=== PATIENT | female | born 1965 | race Caucasian/White ===

== ENCOUNTER 2016-07-28 07:24 | Day surgery (SDC) | payer OTHER ==
[2016-07-28] VITALS (12 sets, daily range): BP systolic 109–148; BP diastolic 49–93; PULSE 73–91; RESP 12–22; O2SAT 92–100
[~2016-07-28] VITALS: Ht 157.5 cm; Wt 113.4 kg
[~2016-07-28 07:24] MED LIST: ALPR0.5T8 PO; ARIP2TAB10 PO; BUPR200T34 PO; CeFAZolin 2 Gm/50 mL D5W IV Premix IV ONE; Dexamethasone 4 mg/mL Inj IVPUSH PRN; EPHEDrine Sulfate 50 mg/mL Inj IVPUSH PRN; HYDR-4003 PO; HYDROmorphone 1 mg/mL Inj IVPUSH PRN; HYG25 PO; IMI100 PO; LAMO100T2 PO; LEVO150T5 PO; LISI-567 PO; Labetalol 5 mg/mL 4 mL Inj IV PRN; Lactated Ringer's 1,000 ML IV SCH; Lactated Ringer's 500 ML IV PRN; Ondansetron 2 mg/mL 2 mL Inj IVPUSH PRN; Phenylephrine 10,000 mCg/mL Inj IVPUSH PRN; ROSU40TA20 PO; TOPI50TA88 PO; fentaNYL-PF 50 mCg/mL 2 mL Inj IVPUSH PRN; hydrALAZINE 20 mg/mL Inj IVPUSH PRN
[2016-07-28] MEDS ORDERED: Lidocaine PF 1% 30 mL Inj ONE (07:25)
[2016-07-28] MEDS ORDERED: Ketamine 10 mg/mL 20 mL Inj ONE (07:25)
[2016-07-28] MEDS ORDERED: Propofol 10,000 mCg/mL 20 mL Inj ONE (07:25)
[2016-07-28] MEDS ORDERED: fentaNYL-PF 50 mCg/mL 2 mL Inj ONE (07:25)
[2016-07-28] MEDS ORDERED: Dexamethasone 4 mg/mL Inj ONE (07:25)
[2016-07-28] MEDS ORDERED: Succinylcholine Chloride 20 mg/mL 5 mL Inj ONE (07:25)
[2016-07-28] MEDS ORDERED: Ondansetron 2 mg/mL 2 mL Inj ONE (07:25)
[2016-07-28] MEDS ORDERED: Lactated Ringer's 1,000 ML IV ONE (08:06)
[2016-07-28] MEDS ORDERED: Bupivacaine-MPF 0.5% W/EPI 30 mL Inj INFILTRATE ONE (09:15)
--- NOTE | 2016-07-28 09:15 | PCM.HPANE ---
Patient Data Date of Service: Jul 28, 2016 Surgeon Admitting Provider: Attending Provider:Zoltan Nolan MD Primary Care Physician:Odalys Recio PA-C Other Provider:Nieves Diaz Anesthesia Reason for Visit Hyperparathyroidism Ht/WT & BMI Height (Feet): 5 Height (Inches): 2.00 Weight (Kilograms): 113.390 Body Mass Index 46.00 Allergies Coded Allergies: metoclopramide (Verified Allergy, Severe, 12/09/08) Uncoded Allergies: Metoclopramide (Allergy, Severe, 12/11/03) Past Anesthesia History Anesthesia History: Denies:: Anesthesia Reactions, Fam Anesthesia Reaction Diabetes History Hx Diabetes?: No MRSA MRSA: No Medications Hypertension Medication: No Home Meds Incl Beta Kerry: No Reported Medications Rosuvastatin Calcium 40 Mg Kkfpoy81 Mg PO 07/27/16 Lisinopril 20 Mg Lgnzsu81 Mg PO DAILY 30 Days Ref 0 07/27/16 Levothyroxine 150 Mcg Vomxna063 Mcg PO DAILY Ref 0 07/27/16 Lamotrigine 100 Mg Tjdypj551 Mg PO DAILY Ref 0 07/27/16 Hydrocodone-Acetaminophen 5-325 mg 1 Each Tablet1 Tablet PO Q4H PRN For Pain Ref 0 07/27/16 Chlorthalidone 25 Mg Ywaawv23 Mg PO DAILY #30 TABLET 07/27/16 Bupropion HCl (Bupropion HCl ER)200 Mg Tablet.er300 Mg PO DAILY 07/27/16 Alprazolam 0.5 Mg Tablet0.5 Mg PO BID PRN For Anxiety Ref 0 07/27/16 Aripiprazole (Abilify)2 Mg Tablet2 Mg PO DAILY Ref 0 07/27/16 Discontinued Reported Medications Topiramate 50 Mg Epraiz28 Mg PO BID Ref 0 07/27/16 Sumatriptan (Imitrex)100 Mg Nhfhck385 Mg PO Q2H PRN migraines MR x1/ NTE 200mg/24hr 07/27/16 Sumatriptan (Imitrex)100 Mg Ndyxjd313 Mg PO PRN For Headache 04/13/15 Atorvastatin (Lipitor)10 Mg Tab10 Mg PO DAILY Ref 0 04/13/15 Atenolol 25 Mg Tyofok91 Mg PO DAILY #30 TABLET Ref 0 04/13/15 Duloxetine 60 Mg Capsule.dr60 Mg PO DAILY 04/23/14 Alprazolam 0.5 Mg Tablet0.5 Mg PO BID PRN For Anxiety 04/23/14 Levothyroxine 175 Mcg Jjiqpd224 Mcg PO DAILY 04/23/14 History History of ENT Problems?: No HEENT History: Denies:: Cataracts Glaucoma Hearing Problem Denture Type: None Teeth Condition: Within Normal Limits Hx of Heart Problems?: Yes Cardiovascular History: Positive for:: Hypertension Denies:: AICD Abdominal Aortic Aneurism Atrial Fibrillation Cardiac Surgery Chest Pain Congestive Heart Failure Heart Murmur Irregular Heartbeat Pacemaker Peripheral Vascular Hx of Respiratory Problem?: No Respiratory History: Denies:: Asthma COPD Emphysema Oxygen Administration Pneumonia Tuberculosis Use of C-PAP Machine (does not use- sleep study upcoming) Use of Inhalers / NEBS Hx Neurologic Problems?: Yes Neurological History: Positive for:: Headaches (migraines- occur about once monthly) Denies:: Alzheimer's Disease CVA Dementia Dizziness Multiple Sclerosis Parkinson's Disease Seizures Hx of GI Problems?: Yes Gastrointestinal History: Positive for:: Hiatal Hernia Hx of Problems?: No Genitourinary History: Denies:: Kidney Stones Urinary Tract Infection Female Hx: Denies:: Endometriosis Pelvic Inflammatory Problems with Breasts? Skin History: Denies:: History Skin Disorders? Pressure Ulcers Hx Musculoskeletal Problems?: Yes Musculoskeletal History: Positive for:: Back Injury (ruptured disc, bulging disc) Musculoskeletal Trauma (hip fx, ankle fx) Denies:: Fibromyalgia (dx at one time, now thinks its parathyroid) Joint Replacement Myasthenia Gravis Osteoarthritis Rheumatoid Arthritis Hx of Psycho/Social Problems?: Yes Psycho Social History: Positive for:: Anxiety Hx Depression Denies:: Bipolar Disorder Suicide Attempt Hx Surgeries?: No (gallbladder, knee, hip) Hx Any Other Health Problems?: Yes Other History: Positive for:: Hospitalization Thyroid Disease (parathyroid current admission problem) Denies:: Cancer History Blood Transfusions: Positive for:: Accept Blood Products? Denies:: Blood Transfuse Reaction Blood Transfusions (not sure, poss around 1979) Hx Diabetes: No Hx Alcohol Use: YesAlcoholic Drinks Per Day: 2 drinks on weekendsHx Substance Use: Yes (marijuana inhaled, random use ) Smoking Status: Current Every Day Smoker Have You Smoked inLast 12 mo: No Stop/Bang S-Snoring: Do You Snore Loudly: Yes T-Tired: feel tired, fatigued: Yes O-Obsered: Observed not breath: Yes P-Blood Pressure: treated: Yes B- Body Mass Index > 35 kg/m2: Yes A- Age over 50: Yes N- Neck Large Circumference: Yes G- Gender Male: No SAMMI Total Score: 7 SAMMI Risk Assessment: High Risk, =/>3 Yes SAMMI Category 1: Yes Risk Assessment Category Category 1A: Patient has history of documented sleep apnea, and HAS NOT received any narcotic, sedative or anesthesia administration during this stay. Category 1B: Patient has history of documented sleep apnea, and HAS received any narcotic , sedative or anesthesia administration during this stay Category 2: Patient has SUSPECTED Obstructive Sleep Apnea, and HAS received any narcotic , sedative or anesthesia administration during this stay. Category 3: Patient has SUSPECTED Obstructive Sleep Apnea and HAS NOT received narcotic, sedative or anesthesia administration during this stay. Category 4: Outpatient in Procedural Areas with known sleep apnea or who screen positive for High Risk via the STOP/BANG questionnaire. Exam Exam Vital Signs Vital Signs Date Time Temp Pulse Resp B/P Pulse Ox O2 Delivery O2 Flow Rate FiO2 07/28/16 08:08 36.4 83 22 148/93 94 Room Air General Appearance: Alert, Oriented X3, Cooperative, No Acute Distress HEENT/AIRWAY: MP 4, Mouth Opening (small) Lungs: Clear to Auscultation, Normal Air Movement Heart: Exam Unremarkable, Regular Rate/Rhythm, No Murmurs/Rubs/Gallops Meds/Labs/Diagnostics Admission Meds Current Medications Lactated Ringer's (Lr) 1,000 ml @ ud STK-MED ONCE IV Last administered on 07/28t 08:06; Start 07/28/16 at 08:06; Stop 07/28/16 at 08:07; Status DC Plan Impression Patient chart reviewed, patient interviewed and anesthestic plan with risks, benefits, and alternatives discussed, and informed consent obtained. Fredy Vallejo MD Jul 28, 2016 09:15
--- NOTE | 2016-07-28 09:30 | DRSVH ---
PROCEDURE: NM PARATHYROID INJECTION ONLY INDICATIONS: HYPERPARATHYROID COMPARISON: [facility], [place], [place] PARATHYROID W SPECT IMAGE, 07/22/2016, 12:47. FINDINGS/IMPRESSION: 10.9 mCi of technetium 99m sestamibi was injected intravenously at 0830 hours i n preparation for surgery. No imaging was performed. Dictated by: Sha Uamna M.D. on 07/28/2016 at 9:26 Approved by: Sha Umana M.D. on 07/28/2016 at 9:28
--- NOTE | 2016-07-28 10:53 | OP ---
[address] [address] OPERATIVE REPORT PATIENT: CHING DAVIDSON : 1965 MR#: [id number] ADMIT: 07/28/2016 JOB ID: [id number] DATE OF SURGERY: 07/28/2016 ANESTHESIA: General. PREOPERATIVE DIAGNOSIS(ES): Primary hyperparathyroidism. POSTOPERATIVE DIAGNOSIS(ES): Primary hyperparathyroidism. OPERATIVE PROCEDURE: Minimally invasive parathyroidectomy using gamma probe for confirmation. SURGEON: Dr. Zoltan Nolan. PACKING MACHINE OPERATOR: Beltran Baez M.D. (pharmacy affairs assistant was required for the safe and timely completion of the case) and Rafa Morillo PA-C. COMPLICATIONS: None. ESTIMATED BLOOD LOSS: Less than 2 mL. CONDITION: Satisfactory. SPECIMEN: Right inferior parathyroid adenoma. FINDINGS: Preoperative imaging including CT and sestamibi scan suggested a right inferior adenoma. Intraoperative findings corresponding with this. Background gamma probe reading was 363. Ex vivo count was 323 confirming that the specimen was an adenoma. INDICATIONS/SIGNIFICANT HISTORY: The patient is a 50-year-old woman with a remote history of thyroid ablation who was noted to have elevated calcium levels. Subsequent PTH was elevated suggesting primary hyperparathyroid disease. She was referred to [facility] and elected to undergo parathyroid exploration. OPERATIVE TECHNIQUE: Prior to coming to the operating room, the patient received 10 mCi sestamibi injection. She was brought into the operating room and placed in the supine position. General anesthesia was administered. The neck was prepped and draped in a standard surgical fashion. A procedural pause performed. Local anesthetic was injected, followed by creation of a 2 cm transverse anterior cervical incision. Dissection was carried down through the skin and subcutaneous tissue. Inferior and superior subplatysmal flaps were then raised. The strap muscles on the right were then sequentially elevated. Immediately under the sternothyroid on the right, the adenoma was encountered as expected based on the imaging. This was circumferentially dissected free. There was a vascular pedicle which was clipped. A total of two clips were placed. The adenoma was then removed. Prior to removing the adenoma, background gamma probe reading was obtained and afterwards an ex vivo count was obtained. Findings were as documented above. Hemostasis was then achieved. The strap muscle was reapproximated with 3-0 Vicryl. Platysma was reapproximated in a similar fashion. Skin was closed using a 4-0 Monocryl. Dermabond was applied. The entire procedure was well tolerated without complication.
[2016-07-28] MEDS: oxyCODONE-Acetamin 5-325 mg Tablet PO PRN ×2 (11:30→12:42)
--- NOTE | 2016-07-28 11:45 | PCM.ANEP1 ---
Post Anesthesia PACU Phase 1 Assessment Vital Signs Vital Signs Date Time Temp Pulse Resp B/P Pulse Ox O2 Delivery O2 Flow Rate FiO2 07/28/16 11:17 73 12 128/63 98 Room Air 07/28/16 11:00 81 12 121/60 100 Room Air 07/28/16 10:55 84 14 109/73 96 Room Air 07/28/16 10:50 36.2 83 19 136/92 93 Room Air 07/28/16 10:45 89 14 116/65 95 Room Air 07/28/16 10:40 91 19 132/63 100 Simple Mask 8 07/28/16 10:35 86 17 134/49 99 Simple Mask 8 07/28/16 10:30 36.2 88 18 132/54 99 Simple Mask 8 07/28/16 08:08 36.4 83 22 148/93 94 Room Air Anesthetic Administered: GA Level of Alertness: Awake, talking Pain: No Nausea or Vomiting: No CV Function & Hydration Stable: Yes Airway Device: Endotrachial Tube Oxygen Delivery: Room Air Lungs: Clear to Auscultation, Normal Air Movement PACU Phase 2 Assessment Complications: No Follow up Care: N/A Patient Instructions Provided: N/A Fredy Vallejo MD Jul 28, 2016 11:45
--- NOTE | 2016-08-01 10:37 | PATH ---
SURGICAL PATHOLOGY Attending Physician:Zoltan Nolan MD CASE STATUS: Signed Out PATIENT NAME: CHING DAVIDSON PID: [id number] : 1965 DATE COLLECTED:07/28/2016 22:52 SPECIMEN: Parathyroid Gland CLINICAL HISTORY: HYPERPARATHYROIDISM 1). RIGHT INFERIOR PARATHYROID ADENOMA FINAL DIAGNOSIS: 1.RIGHT INFERIOR PARATHYROID GLAND: PARATHYROID ADENOMA (0.8 GRAMS MEASURING 1.7 X 1.0 X 0.8 CM). ICD10 D35.1 GROSS DESCRIPTION: The specimen is received in formalin, labeled with the patient's name, sublabeled as right inferior parathyroid and consists of a guan-yellow rubbery glistening parathyroid gland (0.8 g, 1.7 x 1.0 x 0.8 cm). The cut surface is pale-guan smooth and homogenous. No nodules, masses or lesions are identified. Section code: (A) parathyroid gland, longitudinally sectioned. Specimen entirely submitted. 07/30/16 JM MICRO DESCRIPTION: See diagnosis. ICD-9 CODES: CPT CODES: 1: 04572 Electronically Signed Out Edgar Zhao MD [facility] [address], [place] [address] Technical component performed at [facility], [address] [place] [address] [address], [place], [address]
== END 2016-07-28 23:59 | disposition home or self-care (01) ==
LOC: SAS 07:24
PROVIDERS: ATTEND General Practice
DX: D35.1 Benign neoplasm of parathyroid gland (principal); E21.0 Primary hyperparathyroidism; I10 Essential (primary) hypertension; I67.9 Cerebrovascular disease, unspecified; E03.9 Hypothyroidism, unspecified; F41.9 Anxiety disorder, unspecified; M19.90 Unspecified osteoarthritis, unspecified site; E78.01 Familial hypercholesterolemia; M54.12 Radiculopathy, cervical region; K44.9 Diaphragmatic hernia without obstruction or gangrene; E66.01 Morbid (severe) obesity due to excess calories; F12.90 Cannabis use, unspecified, uncomplicated; F17.210 Nicotine dependence, cigarettes, uncomplicated; Z68.42 Body mass index [BMI] 45.0-49.9, adult
CPT/HCPCS: 36415; 60500; 78808; 82310; 83970; A9500; J0330; J0690; J1100; J1170; J1885; J2250; J2405; J3010; J7120